=== PATIENT | male | born 1965 | race Caucasian/White ===

== ENCOUNTER 2017-02-04 13:00 | Emergency (ER) | payer OTHER ==
[~2017-02-04] VITALS: Ht 167.6 cm; Wt 122.2 kg
[2017-02-04 15:11] VITALS: BP 174/117
== END 2017-02-04 15:11 | disposition home or self-care (01) ==
LOC: ED 13:00
DX: S86.911A Strain of unspecified muscle(s) and tendon(s) at lower leg level, right leg, initial encounter (principal); I10 Essential (primary) hypertension; X58.XXXA Exposure to other specified factors, initial encounter; Y93.89 Activity, other specified; Y99.8 Other external cause status; Y92.89 Other specified places as the place of occurrence of the external cause
CPT/HCPCS: J1885; J2310

== ENCOUNTER 2017-07-08 09:10 | Emergency (ER) | payer OTHER ==
[~2017-07-08] VITALS: Ht 170.2 cm; Wt 118.8 kg
[2017-07-08 09:18] VITALS: Ht 170.2 cm; Wt 118.8 kg
[2017-07-08] MEDS ORDERED: METOPROLOL TART50 MG PO (10:15)
[2017-07-08] MEDS ORDERED: LASIX40 MG PO (10:15)
[2017-07-08] MEDS ORDERED: ENALAPRIL MALEA20 MG PO (10:16)
[2017-07-08] MEDS ORDERED: FLO4 PO (10:16)
[2017-07-08] MEDS ORDERED: SIMVASTATIN20 M1 PO (10:16)
[2017-07-08] MEDS ORDERED: POTASSIUM CITR10 MEQ PO (10:17)
[2017-07-08 10:21] LABS: microscopic required? NO
[2017-07-08 10:23] LABS: BASOPHIL % 0.7 % (0-2); PLATELET COUNT 262 x10^3mcL (130-400); RED CELL DISTRIBUTION WIDTH 12.8 % (11.5-14.5)
[2017-07-08 10:25] LABS: CALCIUM 8.8 mg/dL (8.5-10.1); CARBON DIOXIDE 29.8 mmol/L (21-32); CHLORIDE SERUM 100 mmol/L (98-107); CREATININE SERUM 1.1 mg/dL (0.7-1.3); GFR1 > 60 mL/min; GLUCOSE SERUM 285 mg/dL (74-106); POTASSIUM SERUM 4.4 mmol/L (3.5-5.1); SODIUM SERUM 137 mmol/L (136-145)
[2017-07-08 10:30] LABS: urine erythrocyte NEGATIVE (NEGATIVE)
[2017-07-08 10:36] LABS: ALBUMIN 3.7 g/dL (3.4-5.0); ALKALINE PHOSPHATASE 84 U/L (46-116); ALT/SGPT 37 U/L (16-63); AST/SGOT 20 U/L (15-37); BILIRUBIN TOTAL 0.46 mg/dL (0.20-1.00)
[2017-07-08 11:27] VITALS: BP 125/71
== END 2017-07-08 12:00 | disposition home or self-care (01) ==
LOC: ED 09:10
PROVIDERS: Emergency Medicine Emergency Medical Services
DX: M54.12 Radiculopathy, cervical region (principal); I10 Essential (primary) hypertension; E78.00 Pure hypercholesterolemia, unspecified
CPT/HCPCS: 36415; 83880